=== PATIENT | male | born 2000 ===

== ENCOUNTER 2021-08-18 15:40 | Emergency (ER) | payer BC, SELFPAY ==
[2021-08-18 15:45] VITALS: BP 119/54; PULSE 95; RESP 18; TEMP 37.2; O2SAT 98
--- NOTE | 2021-08-18 16:00 | DI.RAD_ITS ---
Exam(s) XR ELBOW RT COMPLETE EXAM: XR ELBOW RT COMPLETE CLINICAL HISTORY: pain s/p fall while skiing. TECHNIQUE: 2D digital imaging was performed. COMPARISON: No exams were available for comparison FINDINGS: Four views There is a fracture of the coronoid process of the proximal ulna. There is a joint effusion-hemarthr osis. Radial head appears intact as does the capitellum. Epicondyles unremarkable. No radiopaque f oreign body. No osseous lesions IMPRESSION: There is a fracture of the coronoid process, nondisplaced. DATA REPOSITORY: RADIATION DOSE DELIVERED:
--- NOTE | 2021-08-18 16:11 | W.ED.GENAD ---
Discharge Plan Disposition Patient Disposition: HOME Condition: Stable Discharge Details Chief Complaint: Orthopedic Clinical Impression: Closed fracture of right elbow Primary Care Provider: Unknown,Unknown ED Provider: Avni Cedeño Discharge Instructions Instructions: Elbow Fracture (ED) Additional Instructions: The xray showed you have a fracture of the elbow you need to follow up with an orthopedist as soon as possible when you return to [facility] if you have significant increase in pain or new pain such as chest pain or abdominal pain return to the emergency department You can take 1000mg tylenol and 600mg ibuprofen every 6 hours as needed. If you take the oxycodone do not drink alcohol or drive Medical Decision Making 20 yo male who denies chronic medical problems comes in with right elbow pain. He was skiing earlier wearing a helmet when he lost control and fell. He states his right arm got caught behind him and his elbow got hyperextended. Denies hitting head or loc and feels well other than his right elbow pain. Denies headache, neck pain, back pain, chest pain, dyspnea, abdomen pain. He localizes the pain to the right olecranon, no visible or palpable deformities. HE can fully flex at the elbow and can extend but can only do so to about 150deg due to pain near full extension. Normal distal sensation and pulses. I suspect sprain but will xray to evaluate for fracture. no humerus, shoulder, forearm, wrist or hand tenderness. pt has fracture of coronoid process. He remains stable, still no swelling and muscles are soft so doubt compartment syndrome. He is from [facility] and is going back tomorrow. I placed in long arm posterior splint and will be given a splint. He was advised he needs to f/u with ortho as soon as possible. Return precautions given. CSMTs intact after splinting Differential Diagnosis Differential Diagnosis: sprain, contusion, fracture Imaging Data Radiologic Study: Attestation: I personally reviewed and interpreted this imaging study as follows: Imaging: X-Ray My impression: fracture Radiologist's impression: EXAM:? XR ELBOW RT COMPLETE CLINICAL HISTORY: ? pain s/p fall while skiing. ? TECHNIQUE:? 2D digital imaging was performed. COMPARISON:? No exams were available for comparison FINDINGS: Four views There is a fracture of the coronoid process of the proximal ulna.? There is a joint effusion-hemarthrosis.? Radial head appears intact as does the capitellum.? Epicondyles unremarkable.? No radiopaque foreign body.? No osseous lesions IMPRESSION: There is a fracture of the coronoid process, nondisplaced. HPI General Mode of arrival: ambulatory. Date/Time Provider Initiated Documentation: 08/18/21 15:48. Limitations to Documentation: no limitations. Information obtained by: patient. History of Present Illness 20 year old M presents to the emergency department with the chief complaint of right elbow pain, described as moderate, Quality is described as aching, Patient started experiencing this hour(s) (2) and it has been constant. improves with Rest improves symptom(s), Movement worsens symptoms . Patient notes no other symptoms.. Patient did receive the following treatments prior to arrival, none General Stated Complaint: Orthopedic MIESHA: 4 Review of Systems All systems reviewed & are unremarkable except as noted in HPI and below Constitutional Constitutional: Denies chills, Denies fever(s) and Denies weakness Eyes Eyes: Denies loss of vision Cardiovascular Cardiovascular: Denies chest pain and Denies dyspnea Respiratory Respiratory: Denies dyspnea Gastrointestinal Gastrointestinal: Denies abdominal pain, Denies nausea and Denies vomiting Genitourinary Genitourinary: Denies dysuria Musculoskeletal Musculoskeletal: Denies joint swelling Integumentary/Breasts Skin/Breast: Denies rash Neurologic Neurologic: Denies loss of vision and Denies weakness PFSH All Active Problems (Updated 08/18/21 @ 17:30 by Avni Cedeño MD) Closed fracture of right elbow (Acute) Social History Smoking/Tobacco Use Status: Never Smoking risk assessment performed?: Yes Alcohol Intake: never Drug use: Never Substance use type: does not use Do you feel safe at home: Yes Do you feel safe in your relationship?: Yes Exam Const General: no acute distress Orientation: alert HENMT Head: normal to inspection Ears: external ears normal General nose exam: external nose normal Mouth: moist mucous membranes Eyes General: appearance normal, both eyes and all related structures Neck Neck: normal visual inspection Resp Effort & Inspection: normal respiratory effort and able to speak in complete sentences Cardio Rate: regular rate GI Palpation: soft and nontender Skin General skin exam: no rashes or lesions noted Neuro General: patient alert and patient oriented x3 Extrem General: capillary refill normal Psych Mental Status: mental status grossly normal Course Vital Signs Vital signs: Vital Signs Temperature 37.2 C 08/18/21 15:45 Pulse 95 H 08/18/21 15:45 Respiratory Rate 18 08/18/21 15:45 Blood Pressure 119/54 L 08/18/21 15:45 Pulse Oximetry 98 08/18/21 15:45 Temperature 37.2 C 08/18/21 15:45 Temperature Source Tympanic 08/18/21 15:45 Pulse 95 H 08/18/21 15:45 Respiratory Rate 18 08/18/21 15:45 Respiratory Effort 08/18/21 15:48 Blood Pressure 119/54 L 08/18/21 15:45 Blood Pressure Position Supine 08/18/21 15:45 Pulse Oximetry 98 08/18/21 15:45 Oxygen Delivery Method Room Air 08/18/21 15:45 Oxygen Flow Rate 0 08/18/21 15:45 Pain Level 7 08/18/21 15:45
== END 2021-08-18 17:39 | disposition home or self-care (01) ==
PROVIDERS: Emergency Provider Emergency Medicine
DX: S52.041A Displaced fracture of coronoid process of right ulna, initial encounter for closed fracture (principal); V00.321A Fall from snow-skis, initial encounter
CPT/HCPCS: 29105; 99283; 73080